=== PATIENT | male | born 1985 | race American Indian/Alaskan Native ===

== ENCOUNTER 2023-11-14 17:26 | Emergency (ER) | payer OTHER ==
[~2023-11-14] VITALS: Ht 177.8 cm; Wt 68.0 kg
[2023-11-14 17:52] VITALS: BP_SYST 99; PULSE 65; RESP 16; TEMP 98.2; O2SAT 98
[2023-11-14] MEDS ORDERED: IBUPROFEN 800 MG TABLET PO ONE (20:30)
[2023-11-14] MEDS ORDERED: IBUP-1969 PO (21:06)
== END 2023-11-14 21:41 | disposition home or self-care (01) ==
LOC: SED 17:26
DX: S93.402A Sprain of unspecified ligament of left ankle, initial encounter (principal); Z79.899 Other long term (current) drug therapy; X50.1XXA Overexertion from prolonged static or awkward postures, initial encounter; Y93.89 Activity, other specified; Y92.89 Other specified places as the place of occurrence of the external cause; Y99.8 Other external cause status
CPT/HCPCS: 99283